=== PATIENT | male | born 1995 | race Two or more races ===

== ENCOUNTER 2019-10-17 15:23 | Emergency (ER) | payer MEDICAID ==
[~2019-10-17] VITALS: Ht 180.3 cm; Wt 85.0 kg
[2019-10-17 15:33] VITALS: BP 141/88
--- NOTE | 2019-10-17 15:38 | NUR ---
PT BIB [facility] WITH SI/HI. PT STATES HE HAS PLAN TO HANG HIMSELFT WITH A ROPE. PT THEN STATES, "ITS JUST LIKE A FEELING, ITS MORE ABOUT HURTING OTHERS" PT WITH HX OF BIPOLAR AND MAJOR DEPRESSIVE DISORDERS. ERMD IN TO EVAL PT. PT NOT COOPERATIVE WITH MD, NOT ANSWERING SPECIFIC QUESTIONS. CLOTHING AND ALL BELONGINGS COLLECTED, 1 BAG LABELED AND PLACED IN LOCKER. PT IN SECURE RM WITH SITTER IN PLACE.
[2019-10-17 15:58] LABS: BASOPHILS # (AUTO) 0.06 x10^3/uL (0-0.1); BASOPHILS % (AUTO) 1 % (0-1); EOSINOPHILS # (AUTO) 0.34 x10^3/uL (0-0.4); EOSINOPHILS % (AUTO) 4 % (1-7); LYMPHOCYTES # (AUTO) 1.89 x10^3/uL (1-3.4); LYMPHOCYTES % (AUTO) 23 % (22-44); MD NO; MEAN CORPUSCULAR HEMOGLOBIN 29.2 pg (27.5-34.5); MEAN CORPUSCULAR HGB CONC 32.4 g/dL (33.2-36.2); MEAN PLATELET VOLUME 6.8 fL (7.4-10.4); MONOCYTES # (AUTO) 0.49 x10^3/uL (0.2-0.8); MONOCYTES % (AUTO) 6 % (2-9); NEUTROPHILS # (AUTO) 5.43 x10^3/uL (1.8-6.8); NEUTROPHILS % (AUTO) 66 % (42-75); PLATELET COUNT 293 x10^3/uL (130-400); RED BLOOD COUNT 4.54 x10^6/uL (4.38-5.82); RED CELL DISTRIBUTION WIDTH 13.6 % (9.4-14.8)
[2019-10-17 16:06] LABS: ALANINE AMINOTRANSFERASE 19 U/L (12-78); ALBUMIN 3.9 g/dL (3.4-5.0); ANION GAP 4 mmol/L (5-15); CALCIUM 8.9 mg/dL (8.5-10.1); CHLORIDE 108 mmol/L (98-107)
[2019-10-17 16:08] LABS: ALKALINE PHOSPHATASE 87 U/L (45-117); BILIRUBIN,TOTAL 0.7 mg/dL (0.2-1.0); CREATININE 0.82 mg/dL (0.7-1.3); TOTAL PROTEIN 7.7 g/dL (6.4-8.2)
[2019-10-17 16:11] LABS: SALICYLATE LEVEL < 1.7 mg/dL (2.8-20.0)
[2019-10-17] MEDS ORDERED: PLEASE ENTER ALLERGIES MC SCH ×2 (16:30→19:00)
[2019-10-17 16:50] LABS: AMPHETAMINE SCREEN, URINE Negative (Negative); BARBITURATE SCREEN, URINE Negative (Negative); BENZODIAZEPINE SCREEN, URINE Negative (Negative); CANNABINOID SCREEN, URINE Negative (Negative); COCAINE SCREEN, URINE Negative (Negative); METHADONE SCREEN, URINE Negative (Negative); OPIATE SCREEN, URINE Negative (Negative)
[2019-10-17] MEDS ORDERED: ARIPIPRAZOLE 10 MG TABLET PO ONE (17:00)
[2019-10-17] MEDS ORDERED: ARIPIPRAZOLE 10 MG TABLET ONE (18:17)
--- NOTE | 2019-10-17 18:24 | NUR ---
PT MEDICATED PER MAR, PT COOPERATIVE. NAD NOTED AT THIS TIME. MEAL TRAY ORDERED
--- NOTE | 2019-10-17 18:56 | NUR ---
REPORT FROM OBINNA DOWNS, ASSUMING CARE OF PT AT THIS TIME
[2019-10-17] MEDS ORDERED: DIVALPROEX 500 MG TABLET.DR PO SCH (21:00)
[2019-10-18] MEDS ORDERED: ARIPIPRAZOLE 10 MG TABLET PO SCH (09:00)
== END 2019-10-17 20:30 | disposition home or self-care (01) ==
LOC: ED 20:24
DX: F29 Unspecified psychosis not due to a substance or known physiological condition (principal)
CPT/HCPCS: 36415; 80053; 80164; 80307; 85025; 99284

== ENCOUNTER 2019-11-20 19:03 | Emergency (ER) | payer MEDICAID ==
[~2019-11-20] VITALS: Ht 180.3 cm; Wt 89.0 kg
--- NOTE | 2019-11-20 19:35 | NUR ---
PT SEATED IN CHAIR AT NURSES STATION NO ROOMS AVAILABLE, AWARE OF OF THIS. IS IN VIEW OF NURSES STATION FOR PT SAFETY
--- NOTE | 2019-11-20 19:48 | NUR ---
PT BROUGHT TO RESTROOM. UA/UDS OBTAINED AND TUBED TO LAB
[2019-11-20] MEDS ORDERED: ALBUTEROL/IPRATROPIUM 2.5MG/0.5MG, 3 ML ONE (20:09)
[2019-11-20 20:17] LABS: AMPHETAMINE SCREEN, URINE Negative (Negative); BARBITURATE SCREEN, URINE Negative (Negative); BENZODIAZEPINE SCREEN, URINE Negative (Negative); CANNABINOID SCREEN, URINE Positive (Negative); COCAINE SCREEN, URINE Negative (Negative); METHADONE SCREEN, URINE Negative (Negative); OPIATE SCREEN, URINE Negative (Negative)
--- NOTE | 2019-11-20 20:55 | NUR ---
PT HAPPILY JOKING WITH THE PATIENT NEXT TO HIM. NAD.
--- NOTE | 2019-11-20 21:00 | NUR ---
LAB AT BEDSIDE FOR BLOOD DRAW.
[2019-11-20 21:09] LABS: BASOPHILS % (AUTO) 1 % (0-1); EOSINOPHILS # (AUTO) 0.59 x10^3/uL (0-0.4); EOSINOPHILS % (AUTO) 5 % (1-7); LYMPHOCYTES # (AUTO) 2.14 x10^3/uL (1-3.4); LYMPHOCYTES % (AUTO) 18 % (22-44); MD NO; MEAN CORPUSCULAR HEMOGLOBIN 29.6 pg (27.5-34.5); MEAN CORPUSCULAR HGB CONC 33.1 g/dL (33.2-36.2); MEAN CORPUSCULAR VOLUME 89.5 fL (81-97); MEAN PLATELET VOLUME 7.1 fL (7.4-10.4); MONOCYTES # (AUTO) 0.92 x10^3/uL (0.2-0.8); MONOCYTES % (AUTO) 8 % (2-9); NEUTROPHILS # (AUTO) 8.49 x10^3/uL (1.8-6.8); NEUTROPHILS % (AUTO) 69 % (42-75); PLATELET COUNT 331 x10^3/uL (130-400); RED BLOOD COUNT 5.03 x10^6/uL (4.38-5.82); RED CELL DISTRIBUTION WIDTH 14.4 % (9.4-14.8)
--- NOTE | 2019-11-20 21:15 | NUR ---
PT GIVEN CRACKERS AND MORE WATER PER REQUEST.
[2019-11-20] MEDS ORDERED: ESCI10TA10 PO (21:16)
--- NOTE | 2019-11-20 21:20 | NUR ---
PT STATES THAT HE HAS NOT PICKED UP HIS MEDICATIONS, LEXAPRO AND THAT HE IS FEELING MORE DEPRESSED AND ANGRY. DOES SEEK OUT PT THERAPY,
[2019-11-20 21:21] LABS: ANION GAP 6 mmol/L (5-15); CALCIUM 9.2 mg/dL (8.5-10.1); CHLORIDE 106 mmol/L (98-107); CREATININE 0.93 mg/dL (0.7-1.3)
[2019-11-20 21:22] LABS: ALANINE AMINOTRANSFERASE 21 U/L (12-78); ALBUMIN 4.1 g/dL (3.4-5.0); SALICYLATE LEVEL < 1.7 mg/dL (2.8-20.0)
[2019-11-20 21:24] LABS: ALKALINE PHOSPHATASE 94 U/L (45-117); BILIRUBIN,TOTAL 0.7 mg/dL (0.2-1.0); TOTAL PROTEIN 8.7 g/dL (6.4-8.2)
--- NOTE | 2019-11-20 21:41 | NUR ---
REPORT RECEIVED FROM HIMANSHU PATEL. PATIENT MOVED TO ROOM 40, BELONGINGS PLACED IN BAGS AND PLACED IN LOCKED STORAGE. TELEPSYCH SET UP IN ROOM
--- NOTE | 2019-11-20 21:48 | NUR ---
REPORT GIVEN TO SOC TELEPSYCH
--- NOTE | 2019-11-20 22:07 | NUR ---
Stacy solitario in ED - 11/21/19 at 0237 by [email or web address] SABA LIRIANO ON 3E PT HAS MEDI-KESHA AND WAS DENIED
--- NOTE | 2019-11-20 22:14 | NUR ---
SOC CALLS BACK AND RECOMMENDS HOLD AT THIS TIME.
--- NOTE | 2019-11-21 00:05 | NUR ---
BREAK RN FOR PRIMARY RN BRIDGETT, REPORT RECEIVED, CARE ASSUMED. PT RESTING ON ED GURNEY WITH EYES CLOSED. NAD NOTED. RESP REGULAR, EVEN, UNLABORED WITH EQUAL CHEST RISE. SITTER AT DOOR FOR CONTINUOUS SAFETY OBSERVATION, GARAGE DOORS DOWN. ROOM SECURED, ALL BELONGINGS REMAIN LOCKED IN CABINET FOR SAFETY. FALL PRECAUTIONS IN PLACE. SIDE RAILS UPX2.
--- NOTE | 2019-11-21 00:35 | NUR ---
BEDSIDE REPORT AND TRANSFER OF CARE BACK TO PRIMARY RN BRIDGETT
--- NOTE | 2019-11-21 01:29 | NUR ---
DECLINED BY 3E DUE TO INSURANCE.
--- NOTE | 2019-11-21 01:30 | NUR ---
REFERRAL PACKET FAXED TO [facility]
--- NOTE | 2019-11-21 02:01 | NUR ---
PATIENT MOVED TO HOSPITAL BED AT THIS TIME. RESTING IN BED, NAD, SITTER AT DOOR
--- NOTE | 2019-11-21 02:36 | NUR ---
[facility] DECLINED PT THEY DO NOT ACCEPT HIS INSURANCE.
--- NOTE | 2019-11-21 03:30 | NUR ---
PATIENT SLEEPING IN HOSPITAL BED, RESPIRATIONS EVEN AND UNLABORED. SITTER AT DOOR
--- NOTE | 2019-11-21 04:16 | NUR ---
PATIENT SLEEPING IN HOSPITAL BED, RESPIRATIONS EVEN AND UNLABORED. SITTER AT DOOR
--- NOTE | 2019-11-21 05:03 | NUR ---
REPORT GIVEN TO HIMANSHU TEMPLE. PLAN OF CARE DISCUSSED
--- NOTE | 2019-11-21 05:12 | NUR ---
Report received from HIMANSHU Camilo. This RN to assume care.
--- NOTE | 2019-11-21 05:17 | NUR ---
Meal trays ordered for breakfast, lunch, and dinner.
--- NOTE | 2019-11-21 05:17 | NUR ---
Patient sleeping in hospital bed. Respirations even and unlabored. Room secured. Sitter outside.
--- NOTE | 2019-11-21 06:43 | NUR ---
Patient sleeping in [facility]. Respirations even and unlabored. Room secured. Sitter outside.
--- NOTE | 2019-11-21 06:52 | NUR ---
Report given to HIMANSHU Daniel.
--- NOTE | 2019-11-21 08:56 | NUR ---
BREAKFAST SERVED TO PATIENT AND PATIENT ATE WELL; ALMOST 100% OF TRAY PLUS 2 ORANGE JUICES. WATER SERVED TO PATIENT. VS UPDATED AND WNL. SUICIDE RISK ASSESSMENT PERFORMED AND PATIENT STATES THAT HE STILL FEELS SUICIDAL AND "HAS ANGER ISSUES" BUT STATES THAT HE TRIES TO CONTROL THEM TO THE BEST OF HIS ABILITY. PT STATES THAT LEXAPRO HELPS HIM CONTROL HIS EMOTIONS.
--- NOTE | 2019-11-21 10:10 | NUR ---
DERIK RN: SPOKE WITH BROOKE AT [facility], VERIFIED RECEIPT OF PACKET.
--- NOTE | 2019-11-21 10:37 | NUR ---
DERIK RN: SPOKE TO [facility], HAVE NOT RECEIVED PACKET. REFAXED TO [facility] AND [facility]. FAX CONFIRMATION RECEIVED.
--- NOTE | 2019-11-21 11:15 | NUR ---
REPORT RECEIVED FROM HIMANSHU MAYBERRY. [facility]
--- NOTE | 2019-11-21 11:29 | NUR ---
PT RESTING IN GURNEY. EYES CLOSED. RESPIRATIONS EQUAL AND UNLABORED. A LUNCH TRAY HAS BEEN ORDERED. PT IS IN SUICIDE SECRUED ROOM WITH A SITTER OUTSIDE OF ROOM
--- NOTE | 2019-11-21 12:15 | NUR ---
TP RN: OLLITA DRAGLINE ENGINEER TO KRISTI PT
--- NOTE | 2019-11-21 12:16 | NUR ---
DERIK RN: LOLITA JEWELL TO SEE PT.
--- NOTE | 2019-11-21 12:22 | NUR ---
LUNCH TRAY ARRIVED. PT ATE 100% OF THE TRAY AND HAS BEEN GIVEN AN ORANGE JUICE.
[2019-11-21] MEDS ORDERED: QUETIAPINE 25MG TABLET PO SCH (14:00)
[2019-11-21] MEDS ORDERED: QUETIAPINE 25MG TABLET ONE (14:01)
--- NOTE | 2019-11-21 14:09 | NUR ---
PT MEDICATED PER NOV. BOTTLE OF WATER PROVIDED.
--- NOTE | 2019-11-21 20:55 | NUR ---
PT WAS GIVEN A [employer] BOX FOR DINNER AT 1700. PT HAS BEEN COMPLAINING HE DID NOT GET A DINNER TONIGHT. IS BECOMING AGITATED. CRACKERS AND 4 ORANGE JUICES HAVE BEEN PROVIDED.
[2019-11-21] MEDS ORDERED: QUETIAPINE 100MG TABLET PO SCH (21:00)
[2019-11-21] MEDS ORDERED: QUETIAPINE 100MG TABLET ONE (21:11)
[2019-11-21 21:19] VITALS: BP 145/88
--- NOTE | 2019-11-21 21:21 | NUR ---
PT RESTING IN [facility]. MEDICATED PER NOV. THIS RN EXPLAINED TO HIM THAT HE WAS THE ONLY PT TO GET A [employer] BOX SANDWHICH WITH A COOKIE FOR DINNER. HE REPORTED "OK IM SORRY I WAS UPSET EARLIER. THATS PRETTY COOL"
--- NOTE | 2019-11-21 23:07 | NUR ---
BS REPORT RECEIVED FROM HIMANSHU DANIELS. PT RESTING ON GURNEY WITH EYES CLOSED, RESPIRAITONS EVEN AND NONLABORED. ROOM SECURED, SITTER IN HALLWAY WITHIN LINE OF SIGHT, ALL SAFETY MEASURES IN PLACE.
--- NOTE | 2019-11-22 03:42 | NUR ---
PT RESTING ON GURNEY WITH EYES CLOSED, RESPIRATIONS EVEN AND NONLABORED. ROOM SECURED, ALL SAFETY MEASURES IN PLACE. SITTER IN HALLWAY WITHIN LINE OF SIGHT.
--- NOTE | 2019-11-22 04:36 | NUR ---
PT RESTING ON GURNEY WITH EYES CLOSED, RESPIRATIONS EVEN AND NONLABORED. ROOM SECURED, SITTER IN HALLWAY WITHIN LINE OF SIGHT.
--- NOTE | 2019-11-22 07:10 | NUR ---
REPORT TO BRIDGETT Morales RN
== END 2019-11-22 12:07 | disposition home or self-care (01) ==
LOC: ED 21:32
DX: F32.9 Major depressive disorder, single episode, unspecified (principal); R45.851 Suicidal ideations; F17.200 Nicotine dependence, unspecified, uncomplicated; Z91.14 Patient's other noncompliance with medication regimen
CPT/HCPCS: 36415; 80053; 80307; 85025; 99284

== ENCOUNTER 2019-11-23 23:43 | Emergency (ER) | payer MEDICAID ==
[~2019-11-23] VITALS: Ht 180.3 cm; Wt 78.0 kg
[~2019-11-23 23:43] MED LIST: ESCI10TA10 PO
[2019-11-23 23:50] VITALS: BP 133/71
--- NOTE | 2019-11-24 00:19 | NUR ---
PT BIB [facility] ACUTELY INTOXICATED AND STATING SUICIDAL WITH NO PLANS. PT REPORTS DRINKING A PINT OF ETOH PRIOR TO ARRIVAL. PER EMS, PT COOPERATIVE AND HAS STABLE VS EN ROUTE. UPON ARRIVAL TO [facility] ED, PT STRIPPED OF ALL BELONGINGS. PT BELONGINGS PLACED IN 2 OF 2 BAGS AND LABELED AND LOCKED IN STORAGE. PT EDUCATED ON ER PROCESS AND POC. ROOM SECURED FOR PT AND STAFF SAFETY. REQUESTED SITTER FROM SENIOR PORTFOLIO ANALYST [employer] AT THIS TIME.
--- NOTE | 2019-11-24 00:25 | NUR ---
LAB AT BS AT THIS TIME.
--- NOTE | 2019-11-24 00:47 | NUR ---
PT INSTRUCTED FOR NEED FOR UA. PT VERBALIZES UNDERSTANDING BUT STATES HE IS "UNABLE TO GO".
[2019-11-24 00:48] LABS: BASOPHILS # (AUTO) 0.06 x10^3/uL (0-0.1); BASOPHILS % (AUTO) 0 % (0-1); EOSINOPHILS % (AUTO) 1 % (1-7); LYMPHOCYTES # (AUTO) 1.53 x10^3/uL (1-3.4); LYMPHOCYTES % (AUTO) 10 % (22-44); MD NO; MEAN CORPUSCULAR HEMOGLOBIN 29.8 pg (27.5-34.5); MEAN CORPUSCULAR HGB CONC 33.7 g/dL (33.2-36.2); MEAN CORPUSCULAR VOLUME 88.4 fL (81-97); MONOCYTES # (AUTO) 0.74 x10^3/uL (0.2-0.8); MONOCYTES % (AUTO) 5 % (2-9); NEUTROPHILS # (AUTO) 13.62 x10^3/uL (1.8-6.8); NEUTROPHILS % (AUTO) 84 % (42-75); PLATELET COUNT 337 x10^3/uL (130-400); RED BLOOD COUNT 4.63 x10^6/uL (4.38-5.82); RED CELL DISTRIBUTION WIDTH 13.9 % (9.4-14.8)
[2019-11-24 00:49] LABS: ALANINE AMINOTRANSFERASE 19 U/L (12-78); ALBUMIN 3.8 g/dL (3.4-5.0); ANION GAP 10 mmol/L (5-15); CALCIUM 8.5 mg/dL (8.5-10.1); CHLORIDE 105 mmol/L (98-107)
[2019-11-24 00:51] LABS: ALKALINE PHOSPHATASE 83 U/L (45-117); BILIRUBIN,TOTAL 0.4 mg/dL (0.2-1.0); SALICYLATE LEVEL < 1.7 mg/dL (2.8-20.0); TOTAL PROTEIN 8.3 g/dL (6.4-8.2)
--- NOTE | 2019-11-24 02:24 | NUR ---
REPORT RECEIVED FROM HIMANSHU WORRELL. PT RESTING IN [facility], EYES CLOSED. EVEN/REGULAR RESPIRATIONS NOTED.
--- NOTE | 2019-11-24 02:35 | NUR ---
PT BREATHALYZED BY PK Clean. PT ETOH 0.114 AT THIS TIME.
--- NOTE | 2019-11-24 03:45 | NUR ---
ETOH 0.78, ERP AWARE
--- NOTE | 2019-11-24 04:07 | NUR ---
PT PROVIDED BELONGINGS BAGS (2). DC EDUCATION PROVIDED, PT MOSTLY UPSET WITH DISPOSITION, "THEY TOLD ME LAST TIME I WOULD NEED TO BE ADMITTED IF I CAME BACK" "I HAVE HAD PSYCH PROBLEMS SINCE I WAS [age]EL[age]". PT PROVIDED [employer] FOR SUPPORT, STATES "I REFUSE TO GO TO THEM". PT AMBULATED STEADILY OUT [facility] DOORS DESPITE RN ATTEMPTS TO ASSIST PT TO DC DESK AND PROVIDE TAXI VOUCHER.
== END 2019-11-24 04:11 | disposition home or self-care (01) ==
LOC: ED 11-24 02:37
DX: R45.851 Suicidal ideations (principal); F10.120 Alcohol abuse with intoxication, uncomplicated; Y90.9 Presence of alcohol in blood, level not specified
CPT/HCPCS: 36415; 80053; 80307; 85025; 99283